=== PATIENT | female | born 1965 | race Caucasian/White ===

== ENCOUNTER → 2017-05-31 12:07 | Outpatient (CLI) | payer OTHER ==
[~2017-05-31] VITALS: Ht 170.2 cm; Wt 122.9 kg
[2017-05-31 14:36] VITALS: Ht 170.2 cm; Wt 122.9 kg
== END ==
LOC: D.FANS 12:07
DX: E66.01 Morbid (severe) obesity due to excess calories (principal)

== ENCOUNTER → 2017-10-19 09:51 | Outpatient (CLI) | payer OTHER ==
[2017-05-31 14:36] VITALS: BMI 42.4
== END | disposition home or self-care (01) ==
LOC: D.RT 09-28 11:00
DX: R06.02 Shortness of breath (principal)

== ENCOUNTER → 2017-11-07 09:05 | Outpatient (CLI) | payer OTHER ==
[2017-05-31 14:36] VITALS: BMI 42.4
[~2017-11-07 09:05] MED LIST: DEXILANT60 MG PO; HYDROCHLOROTHIA25 MG PO; HYDROCODON-ACE1 EAC7 PO; L-METHYLFOLATE7.5 MG; METOPROLOL TART50 MG PO; NUCYNTA50 MG PO; POTASSIUM99 M1 PO; TIROSINT88 MCG PO; TRINTELLIX20 MG PO
[2018-01-31 06:42] VITALS: BMI 46.9
== END | disposition home or self-care (01) ==
LOC: D.CT 11-01 09:30
DX: R94.2 Abnormal results of pulmonary function studies (principal)

== ENCOUNTER 2018-01-31 06:32 | Day surgery (SDC) | payer OTHER ==
[2018-01-30 10:56] LABS: HEMATOCRIT 36.9 % (36.0-48.0); HEMOGLOBIN 12.4 g/dL (12-16); MCH 31.8 pg (26.0-34.0); MCHC 33.6 g/dL (31.0-37.0); MCV 94.6 fL (80.0-100.0); RBC 3.9 10x6/uL (4.00-5.40); RDW 13.3 % (11.5-14.5); WBC 9.8 10x3/uL (4.8-10.8)
[2018-01-30 11:23] LABS: ANION GAP 13.7 mmol/L (8-16); CALCIUM 9.3 mg/dL (8.5-10.1); CARBON DIOXIDE 26.3 mmol/L (21.0-32.0); CREATININE - SERUM 1.2 mg/dL (0.6-1.3)
[~2018-01-31] VITALS: Ht 167.6 cm; Wt 131.5 kg
[~2018-01-31 06:32] MED LIST changes: -HYDROCODON-ACE1 EAC7 PO
[2018-01-31 06:42] VITALS: BP 126/63; Ht 167.6 cm; Wt 131.5 kg
[2018-01-31 07:27] LABS: HCG URINE NEGATIVE (NEGATIVE)
[2018-01-31] MEDS ORDERED: HYDROCODON-ACE1 EAC7 PO (10:48)
== END 2018-01-31 14:33 | disposition home or self-care (01) ==
LOC: D.OPS 06:32 → D.PAN 09:30 → D.OPS 14:33
PROVIDERS: Anesthesiology; Surgery
DX: K80.10 Calculus of gallbladder with chronic cholecystitis without obstruction (principal); E66.9 Obesity, unspecified; G47.33 Obstructive sleep apnea (adult) (pediatric); K21.9 Gastro-esophageal reflux disease without esophagitis; I10 Essential (primary) hypertension; Z01.812 Encounter for preprocedural laboratory examination

== ENCOUNTER 2019-06-30 04:06 | Emergency (ER) | payer OTHER ==
[~2019-06-30] VITALS: Ht 167.6 cm; Wt 127.3 kg
[~2019-06-30 04:06] MED LIST changes: +HYDROCODON-ACE1 EAC7 PO
[2019-06-30 04:09] VITALS: Ht 167.6 cm; Wt 127.3 kg
[2019-06-30] MEDS ORDERED: L-METHYLFOLATE7.5 MG PO (04:11)
[2019-06-30] MEDS ORDERED: TRINTELLIX20 MG PO (04:11)
[2019-06-30] MEDS ORDERED: MOBIC7.5 MG PO (04:13)
[2019-06-30] MEDS ORDERED: GLUCOPHAGE500 MG PO (04:13)
[2019-06-30] MEDS ORDERED: REXULTI1 MG PO (04:14)
[2019-06-30] MEDS ORDERED: LIPITOR20 MG PO (04:14)
[2019-06-30] MEDS ORDERED: ZANAFLEX6 MG PO (04:15)
[2019-06-30] MEDS ORDERED: PHENDIMETRAZINE PO (04:17)
[2019-06-30] MEDS ORDERED: TIROSINT125 MCG PO (04:18)
[2019-06-30 04:33] LABS: APPEARANCE HAZY (CLEAR); BILIRUBIN NEGATIVE (NEGATIVE); COLOR YELLOW (YELLOW); GLUCOSE NEGATIVE (NEGATIVE); KETONE SMALL mg/dL (NEGATIVE); NITRITE NEGATIVE (NEGATIVE); PROTEIN 1+ mg/dL (NEGATIVE); SPECIFIC GRAVITY 1.025 (1.005-1.020); UROBILINOGEN NORMAL (NORMAL)
[2019-06-30 04:34] LABS: BACTERIA MANY /hpf (NEGATIVE); HCG URINE NEGATIVE (NEGATIVE)
[2019-06-30 04:46] LABS: BASOPHILS 0.3 % (0-2); EOSINOPHILS 0.7 % (0-7); HEMATOCRIT 35.9 % (36.0-48.0); IMMATURE GRANULOCYTES 0.2 % (0-5); LYMPHOCYTES 18.8 % (15-50); MCH 31.6 pg (26.0-34.0); MCHC 33.4 g/dL (31.0-37.0); MCV 94.5 fL (80.0-100.0); MEAN PLATELET VOLUME 10.3 fL (7.4-10.4); MONOCYTES 5.7 % (2-11); NEUTROPHILS 74.3 % (40-80); PLATELET COUNT 345 10x3/uL (130-400); RDW 12.6 % (11.5-14.5); WBC 13.1 10x3/uL (4.8-10.8)
[2019-06-30 04:56] LABS: CALC OSMOLALITY 280 mosm/kg (275-300); CALCIUM 9.4 mg/dL (8.5-10.1); CARBON DIOXIDE 23.9 mmol/L (21.0-32.0); CHLORIDE - SERUM 104 mmol/L (98-107); CREATININE - SERUM 1.3 mg/dL (0.6-1.3); GLUCOSE 179 mg/dL (74-106); POTASSIUM - SERUM 3.8 mmol/L (3.5-5.1); SODIUM 137 mmol/L (136-145); UREA NITROGEN 22 mg/dL (7-18); eGFR NON AFRICAN AMERICAN 45 mL/min (90-120)
[2019-06-30 05:05] LABS: ALBUMIN 3.6 g/dL (3.4-5.0); ALKALINE PHOSPHATASE 78 U/L (46-116); ALT (SGPT) 22 U/L (10-68); AMYLASE - SERUM 31 U/L (25-115); BILIRUBIN - TOTAL 0.41 mg/dL (0.2-1.3); LIPASE 94 U/L (73-393); PROTEIN - SERUM 7.5 g/dL (6.4-8.2)
[2019-06-30 05:08] LABS: TROPONIN-I < 0.017 ng/mL (0.000-0.060)
[2019-06-30] MEDS ORDERED: HYDROCODONE-A1 UDTA2 PO (06:46)
[2019-06-30] MEDS ORDERED: SULFAMETHOXAZOL1 TA2 PO (06:46)
[2019-06-30] MEDS ORDERED: FLOMAX0.4 MG PO (06:46)
[2019-06-30 07:13] VITALS: BP 138/79
== END 2019-06-30 08:00 | disposition home or self-care (01) ==
LOC: D.ER 04:06
PROVIDERS: Emergency Medicine
DX: N20.1 Calculus of ureter (principal); I10 Essential (primary) hypertension

== ENCOUNTER 2020-01-08 09:00 | Outpatient (CLI) | payer OTHER ==
[2019-06-30 04:09] VITALS: BMI 45.3
[~2020-01-08 09:00] MED LIST changes: +FLOMAX0.4 MG PO; +GLUCOPHAGE500 MG PO; +HYDROCODONE-A1 UDTA2 PO; +L-METHYLFOLATE7.5 MG PO; +LIPITOR20 MG PO; +MOBIC7.5 MG PO; +PHENDIMETRAZINE PO; +REXULTI1 MG PO; +SULFAMETHOXAZOL1 TA2 PO; +TIROSINT125 MCG PO; +ZANAFLEX6 MG PO
== END 2020-01-08 10:00 | disposition home or self-care (01) ==
LOC: D.MAMMO 09:00
PROVIDERS: ATTEND Family Medicine
DX: Z12.31 Encounter for screening mammogram for malignant neoplasm of breast (principal)